=== PATIENT | male | born 1985 | race Caucasian/White ===

== ENCOUNTER 2022-02-28 16:22 | Emergency (ER) | payer MEDICAID, SELFPAY ==
[2022-02-28 16:27] VITALS: BP 110/68; PULSE 79; RESP 18; TEMP 36.8; O2SAT 99
--- NOTE | 2022-02-28 17:42 | ED.GENADUL_ITS ---
Discharge Plan Disposition Patient Disposition: Home Condition: Stable Discharge Details Clinical Impression: Rectal bleed Primary Care Provider: Thang Givens ED Provider: Elijah Buck Home Meds and New Rx's Prescriptions: New hydrocortisone acetate [Anusol-HC] 25 mg suppository 25 mg RI DAILY PRN (Reason: hemorrhoids) Qty: 12 0RF Colace Clear 50 mg capsule 50 mg PO DAILY Qty: 30 0RF No Action buprenorphine-naloxone [Suboxone] 8-2 mg film 8 film sublingual DAILY Discharge Instructions Instructions: Rectal Bleeding (ED) Additional Instructions: Please follow-up with your primary care physician. Please return for any worsening symptoms. Medical Decision Making 36-year-old male presents after episode of bright red blood per rectum did have a mild lower abdominal pain earlier today that has resolved. Patient is afebrile nontoxic no nausea or vomiting. Abdomen soft nontender nondistended. Evidence of internal hemorrhoids on digital rectal exam, no blood on examination. Event happened after having large hard bowel movement likely in the setting of Suboxone related constipation, muscles consider subclinical anal fissure not appreciated on examination. Lower suspicion for Crohn's ulcerative colitis or diverticulitis at this time. Patient counseled regarding findings, will start on Anusol suppository and Colace. Given strict return precautions for recurrent events. If recurrent patient counseled that he would likely benefit from colonoscopy/endoscopy. Will follow with primary care physician HPI General Date/Time Provider Initiated Documentation: 02/28/22 16:54 . HPI Narrative: 36-year-old male currently being treated with Suboxone, presents with episode of bright red blood per rectum after having a large bowel movement. Slight abdominal pain earlier that has resolved. Unknown past family history per patient Related Data Home Medications Medication Instructions Recorded Confirmed buprenorphine 8 mg-naloxone 2 mg 8 film sublingual DAILY 02/28/22 02/28/22 sublingual film (Suboxone) docusate sodium 50 mg capsule 50 mg PO DAILY #30 caps 02/28/22 (Colace Clear) hydrocortisone acetate 25 mg 25 mg RI DAILY PRN hemorrhoids #12 02/28/22 rectal suppository (Anusol-HC) ea Previous Rx's Medication Instructions Recorded docusate sodium 50 mg capsule 50 mg PO DAILY #30 caps 02/28/22 (Colace Clear) hydrocortisone acetate 25 mg 25 mg RI DAILY PRN hemorrhoids #12 02/28/22 rectal suppository (Anusol-HC) ea Allergies Allergy/AdvReac Type Severity Reaction Status Date / Time No Known Allergies Allergy Unverified 02/28/22 16:32 General Stated Complaint: Abd Prob FREEMAN: 3 Review of Systems Narrative: Review of Systems Constitutional: negative Eyes: negative ENT: negative Cardiovascular: negative Respiratory: negative Gastrointestinal: Rectal bleeding : negative Musculoskeletal: negative Skin: negative Neurologic: negative Psych: negative PFSH All Active Problems (Updated 02/28/22 @ 17:49 by Elijah Buck MD) Rectal bleed (Acute) Social History Smoking/Tobacco Use Status: Current every day Tobacco Type: cigarettes Smoking risk assessment performed?: Yes Alcohol Intake: never Drug use: Daily Substance use type: marijuana Do you feel safe at home: Yes Do you feel safe in your relationship?: Yes Exam Narrative Exam Narrative: Physical Examination General: alert, awake, cooperative, resting comfortably, no acute distress GI: abdomen soft, non-tender, non-distended; no palpable mass or hepatosplenomegaly; internal hemorrhoids on examination, no palpable mass, no blood on examination Skin: no lesions, rashes or trauma appreciated Neuro: AAOx3, normal speech, moving all extremities Psych: Appropriate mood and affect Course Vital Signs Vital signs: Vital Signs Temperature 36.8 C 02/28/22 16:27 Pulse 79 02/28/22 16:27 Respiratory Rate 18 02/28/22 16:27 Blood Pressure 110/68 02/28/22 16:27 Pulse Oximetry 99 02/28/22 16:27 Temperature 36.8 C 02/28/22 16:27 Temperature Source Temporal Artery Scan 02/28/22 16:27 Pulse 79 02/28/22 16:27 Respiratory Rate 18 02/28/22 16:27 Respiratory Effort 02/28/22 16:31 Blood Pressure 110/68 02/28/22 16:27 Blood Pressure Position Sitting 02/28/22 16:27 Pulse Oximetry 99 02/28/22 16:27 Oxygen Delivery Method Room Air 02/28/22 16:27 Oxygen Flow Rate 0 02/28/22 16:27
== END 2022-02-28 17:57 | disposition home or self-care (01) ==
PROVIDERS: Emergency Provider Emergency Medicine; PCP Family Medicine
DX: K62.5 Hemorrhage of anus and rectum (principal); R10.30 Lower abdominal pain, unspecified
CPT/HCPCS: 99283

== ENCOUNTER 2022-10-09 11:56 | Emergency (ER) | payer OTHER, MEDICAID, SELFPAY ==
[2022-10-09] VITALS (13 sets, daily range): BP systolic 106–121; BP diastolic 66–85; PULSE 59–106; RESP 18; TEMP 36.7; O2SAT 94–97
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
[2022-10-09] MEDS: ACETAMINOPHEN 1,000 MG/100 ML BTL 400 MG IVPB (12:36)
[2022-10-09 12:38] LABS: Abs Immature Grans 0.04 10^3/uL (0.0-0.06); Absolute Basophil Count 0.05 10^3/uL (0.0-0.2); Absolute Eosinophil Count 0.04 10^3/uL (0.0-0.7); Absolute Monocyte Count 0.57 10^3/uL (0.1-0.8); Basophils % 0.6; Eosinophils % 0.5; HCT 39.8 % (40.0-50.0); HGB 14.5 g/dL (13.5-17.5); Immature Grans % 0.5; Lymphocytes % 18.8; MCH 30.5 pg (27.0-33.0); MCHC 36.4 % (32.0-36.0); MCV 84 fL (80-95); MPV 8.9 fL (8.0-11.0); Monocytes % 6.7; Neutrophils % 72.9; Platelet Count 215 10^3/uL (130-400); RBC 4.75 10^6/uL (4.36-5.78); RDW 11.4 % (11.8-14.1); RDW-SD 34.8 fL
[2022-10-09 12:59] LABS: ALT 25 U/L (16-63); AST 23 U/L (15-37); Albumin 4.4 g/dL (3.4-5.0); Alkaline Phosphatase 53 U/L (46-116); Anion Gap 9.2 mmol/L (3-11); BUN 17 mg/dL (7-18); Bilirubin, Total 0.3 mg/dL (0.2-1.0); CO2 28.8 mmol/L (21.0-32.0); CREATININE 0.9 mg/dL (0.70-1.30); Calcium 8.9 mg/dL (8.5-10.1); Chloride 102 mmol/L (98-107); Estimated GFR 114.22 (mL/min/1.73m2); Glucose 104 mg/dL (74-106); Sodium 140 mmol/L (136-145); Total Protein 8.5 g/dL (6.4-8.2)
[2022-10-09 13:28] LABS: Bilirubin Negative (Negative); Blood Trace-intact (Negative); Clarity Clear (Clear); Glucose Negative (Negative); Ketones Negative (Negative); Leukocyte Esterase Negative (Negative); Nitrite Negative (Negative); Specific Gravity >= 1.030 (1.005-1.025); Urobilinogen 0.2 mg/dL (Up to 0.2); pH 5.5 (5-8)
[2022-10-09 13:44] LABS: Bacteria Few HPF (Negative); C & S Indicated? Yes; Casts 0-2 Fine Granular LPF (Negative); Crystals Negative HPF (Negative); Epithelial Cells Few HPF (Negative); Mucus Heavy (Negative)
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
--- NOTE | 2022-10-09 17:21 | NUR.NOTE ---
Doctor made aware of pt leaving AMA. Pt stated, I am on suboxone and can't do this anymore. Pt made aware of risks and understood them. Provider aware, Charge nurse aware.
== END 2022-10-09 17:20 | disposition left against medical advice (07) ==
PROVIDERS: Nurse Practitioner Family; Emergency Provider Nurse Practitioner Acute Care; PCP Family Medicine
DX: M54.2 Cervicalgia (principal); M54.9 Dorsalgia, unspecified; V43.52XA Car driver injured in collision with other type car in traffic accident, initial encounter
CPT/HCPCS: 80053; 96365; 99284; 70450; 72125; 72141; 81003; 81015; 85025; 87086; J0131

== ENCOUNTER 2024-03-07 03:17 | Outpatient (CLI) | payer OTHER, SELFPAY ==
--- NOTE | 2024-03-07 06:30 | DI.MRI_ITS ---
Exam(s) MR BRAIN WO EXAM: MR BRAIN WO CLINICAL HISTORY: paraesthesias, ?MS,20.2 TECHNIQUE: Multiplanar multisequence MRI of the brain was performed. COMPARISON: No exams were available for comparison FINDINGS: VENTRICLES AND EXTRA AXIAL SPACES: Normal in size and morphology for the patient's age. MIDLINE SHIFT: None. CEREBRAL PARENCHYMA: No focus of restricted diffusion to suggest acute infarct. No space-occupying le michel identified. Mild atrophy consistent with the patient's age. Mild scattered foci of high signal in the white matter consistent with sequela of chronic microvascular disease. BRAINSTEM/CEREBELLUM: Normal. Vasculature: Normal flow void. PITUITARY GLAND: Unremarkable. ORBITS: Unremarkable. VISUALIZED PARANASAL SINUSES/MASTOIDS: Mucosal thickening of the right maxillary sinus. IMPRESSION: Unremarkable MRI of the brain. Mucosal thickening of the right maxillary sinus. DATA REPOSITORY:
== END 2024-03-07 03:37 ==
PROVIDERS: PCP Family Medicine; Visit Provider Psychiatry & Neurology Neurology
DX: R20.2 Paresthesia of skin (principal)
CPT/HCPCS: 70551

== ENCOUNTER → 2025-01-06 10:52 | Outpatient (CLI) | payer OTHER, SELFPAY ==
--- NOTE | 2025-01-06 14:23 | DI.RAD_ITS ---
Exam(s) XR CERVICAL SPINE COMP 4-5V EXAM: XR CERVICAL SPINE COMP 4-5V CLINICAL HISTORY: ICD-10: M54.10 radiculopathy, site unspecified. TECHNIQUE: 2D digital imaging was performed. Five images were obtained. AP, odontoid, lateral and bilateral oblique images were obtained. COMPARISON: No exams were available for comparison FINDINGS: The odontoid is intact. The lateral masses are well aligned. There is straightening of the normal cervical lordosis. This may be due to muscle spasm or patient positioning. The vertebral bodies, disc spaces and posterior elements are well maintained. No acute fracture or subluxation is present. The re is mild narrowing of the neural foramen on the left from C3-4 through C6-C7. The cervical thoracic junction is well maintained. The prevertebral soft tissues are unremarkable. Lung apices are clear. IMPRESSION: 1. There is no acute fracture or subluxation in the cervical spine. 2. Mild left-sided neural foraminal narrowing. Further evaluation with MRI should be considered if clinically indicated. 3. The preliminary [facility] report was reviewed. DATA REPOSITORY: RADIATION DOSE DELIVERED:
--- NOTE | 2025-01-06 14:25 | DI.RAD_ITS ---
Exam(s) XR THORACIC SPINE COMPLETE EXAM: XR THORACIC SPINE COMPLETE CLINICAL HISTORY: ICD-10: M54.10 radiculopathy, site unspecified. TECHNIQUE: 2D digital imaging was performed of the thoracic spine. Three views were obtained. AP, swimmer's and lateral views were obtained. COMPARISON: No exams were available for comparison FINDINGS: BONES: There is no fracture or destructive lesion. The vertebral bodies and posterior elements are unremarkable. 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 There is very mild disc space narrowing present. SOFT TISSUE: Visualized lungs are clear. IMPRESSION: 1. Thoracic scoliosis. 2. No acute fracture or subluxation. 3. If there are radicular concerns, an MRI should be considered for further evaluation. 4. The preliminary [facility] report was reviewed. DATA REPOSITORY: RADIATION DOSE DELIVERED:
--- NOTE | 2025-01-06 15:09 | DI.[facility]_ITS ---
PROCEDURE INFORMATION: Exam: XR Thoracic Spine Exam date and time: 01/06/2025 2:11 PM Age: 39 years old Clinical indication: Pain; Other: Radiculopathy, site unspecified TECHNIQUE: Imaging protocol: Radiologic exam of the thoracic spine. Views: 3 views. COMPARISON: None provided. FINDINGS: Bones/joints: There is an S-shaped scoliosis. Spinal alignment is otherwise maintained. Vertebral body heights are intact. The pedicles appear intact. No acute fracture is identified. There is mild multilevel facet arthrosis, disc space narrowing and marginal osteophyte formation. Soft tissues: Grossly unremarkable. IMPRESSION: 1. Mild degenerative disk disease which could be better evaluated by means of MRI as clinically indicated. 2. S-shaped scoliosis. Dictated and Authenticated by: Carmine Abrams MD. Orderin Chidi Roger MD
--- NOTE | 2025-01-06 15:11 | DI.[facility]_ITS ---
PROCEDURE INFORMATION: Exam: XR Spine; Cervical Exam date and time: 01/06/2025 2:17 PM Age: 39 years old Clinical indication: Pain; Pain: Radiculopathy, site unspecified TECHNIQUE: Imaging protocol: XR of the spine. Exam focused on the cervical spine. Views: 1 view. COMPARISON: MR CERVICAL SPINE WO 10/09/2022 3:22 PM FINDINGS: Bones/joints: Vertebral body heights are intact. Straightening of the cervical lordotic curve could be secondary to muscle spasm or positioning. Spinal alignment is otherwise maintained. There are mild productive changes about the dens and anterior C1 arch. No acute fracture is identified. There is mild multilevel facet arthrosis, disc space narrowing and marginal osteophyte formation. There appears to be osteophytic encroachment of the neural foramina on the left at C3-C4, C5-C6 and C6-C7, and on the right at C4-C5, C5-C6 and C6-C7. Soft tissues: The prevertebral soft tissues are not significantly swollen. IMPRESSION: 1. Mild degenerative disk disease which could be better evaluated by means of MRI as clinically indicated. 2. Straightening of the cervical lordotic curve, could be secondary to muscle spasm or positioning. Dictated and Authenticated by: Carmine Abrams MD. Orderin Chidi Roger MD
== END ==
LOC: DI 01-23 10:52
PROVIDERS: PCP Family Medicine; Visit Provider Physician Assistant Medical
DX: M54.10 Radiculopathy, site unspecified (principal); M41.24 Other idiopathic scoliosis, thoracic region; M99.61 Osseous and subluxation stenosis of intervertebral foramina of cervical region
CPT/HCPCS: 72050; 72072

== ENCOUNTER → 2025-02-14 01:09 | Outpatient (CLI) | payer BC, SELFPAY ==
--- NOTE | 2025-02-14 | DI.MRI_ITS ---
Exam(s) MR CERVICAL SPINE WO EXAM: MR CERVICAL SPINE WO CLINICAL HISTORY: RT CERVICAL RADICULOPATHY, M54.12, RT ARM NUMBNESS/WEAKNESS TECHNIQUE: Multiplanar multisequence MRI of the cervical spine was performed without intravenous contrast. COMPARISON: MR MR CERVICAL SPINE WO from 10/09/2022 CR,XR XR CERVICAL SPINE COMP 4-5V from 01/06/2025 FINDINGS: BONES: Vertebral body heights are maintained. Intervertebral disc spaces are normal. Alignment is normal. Bone marrow signal intensity is within normal limits. CERVICAL CORD: Craniovertebral junction is unremarkable. The cervical cord is normal size and signal intensity. SOFT TISSUES: Unremarkable. C2-3: No disc herniation or bulge is identified. No significant central spinal canal or neural foraminal stenosis. C3-4: No disc herniation or bulge is identified. There are degenerative changes seen on the left at the uncovertebral joints causing moderate left neural foraminal stenosis. There is no central spinal canal or right neural foraminal stenosis present. C4-5: No disc herniation or bulge is identified. There are degenerative changes of the uncovertebral joints bilaterally causing moderate bilateral neural foraminal stenosis, left greater than right. C5-6: There is a right-sided disc herniation with extension into the right neural foramen. However there is no significant right neural foraminal stenosis. There is left neural foraminal stenosis present. There is effacement of the anterior subarachnoid space on the right. There is normal signal in the spinal cord. C6-7: There is prominence of the osteophyte disc complex. There is extension of disc material into the right neural foramen. There is mild narrowing of the neural foramen on the left. Degenerative changes of the uncovertebral joints are seen. There is no significant central spinal canal or right neural foraminal stenosis. C7-T1: No disc herniation or bulge is identified. No significant central spinal canal or neural foraminal stenosis. IMPRESSION: Multilevel degenerative changes in the lumbar spine resulting in neural foraminal stenosis as described above. The findings are most marked at the C4-5 level. DATA REPOSITORY:
== END ==
LOC: DI 01:09
PROVIDERS: PCP Family Medicine; Visit Provider Family Medicine
DX: M54.12 Radiculopathy, cervical region (principal)
CPT/HCPCS: 72141